=== PATIENT | male | born 1985 | race Caucasian/White ===

== ENCOUNTER 2016-05-25 20:52 | Emergency (ER) | payer OTHER ==
[2016-05-25] MEDS ORDERED: XYLOCAINE 1% INJ ONE (23:24)
[2016-05-25] MEDS ORDERED: NORCO-7.5 PO ONE (23:24)
[2016-05-25] MEDS ORDERED: SEPTRA DS PO ONE (23:25)
--- NOTE | 2016-05-25 23:28 | PROVIDER DOCUMENTATION ---
HPI-General Adult - General Chief Complaint: Abscess Stated Complaint: ingrown toe nail,abscess face Time Seen by Provider: 05/25/16 23:12 Source: patient Allergies/Adverse Reactions: Patient Allergies Allergy/AdvReac Type Severity Reaction Status Date / Time tramadol AdvReac Mild NAUSEA/VOMI Verified 05/26/16 00:13 TING Home Medications: Home Medication List Medication Instructions Recorded Confirmed Last Taken Type Trazodone [Desyrel] 150 mg PO QHS 07/07/15 05/26/16 05/18/16 21:00 History Hydrocodone/APAP 5 mg/325 mg 1 each PO Q6H PRN PRN #10 tablet 05/26/16 Unknown Rx [Sanford-5] Sulfamethoxazole/Trimethoprim 1 each PO BID #10 tablet 05/26/16 Unknown Rx [Bactrim Ds Tablet] - History of Present Illness -Gen Adult Nature of Presenting Problems: Pt. is 31 yom that presents with c/o ingrown toenail to the left great toe. Pt. reports symptoms for one month. Pt. also reports an abscess to the right side of his head. Pt. denies any other symptoms. Location of Pain/Injury: reports: feet (Left great toe). denies: head, face, mouth, neck, chest, upper extremity, hand(s), abdomen, back, pelvis, genitalia, lower extremity, upper body, lower body, generalized Pain Radiation: reports: no radiation Quality of Pain: reports: aching. denies: burning, cramping, dull, fullness, indigestion, pressure, sharp, stabbing, tearing, throbbing, tightness Severity: reports: moderate. denies: mild, severe Onset/Duration: reports: gradual, other (One month) Timing: reports: still present. denies: improving, gone now, resolved prior to arrival, intermittent, constant, changing over time, getting worse Context/Activities at Onset: reports: none. denies: recent emotional stress, recent physical stress, recent trauma history, possible bad food, cold exposure , out of country travel Modifying Factors: improves with: nothing Associated Symptoms: reports: other (Toe pain). denies: anxiety, arm pain, back /neck pain, chest pain, constipation, cough, diaphoresis, diarrhea, dizziness, EENT symptoms, fatigue, fever/chills, genitourinary problems, headaches, heartburn, joint pain, loss of appetite, malaise, muscle aches, sinus congestion /drainage, nausea, rash, seizure, shortness of breath, sensory/motor loss, pain with inspiration, swelling/mass in abdomen, syncope, vomiting, weakness, trouble walking Similar Symptoms Previously?: Yes Recently seen or treated by another doctor?: No Review of Systems - Adult - REVIEW OF SYSTEMS - ADULT Constitutional: reports: see HPI. denies: chills, fever, fatique Eyes: reports: see HPI. denies: discharge, blurred vision, double vision Ears, Nose, Mouth & Throat: reports: see HPI. denies: ear pain, hearing loss, sinus problem, nose pain, loose teeth, mouth/dental pain, throat pain, throat swelling Cardiovascular: reports: see HPI. denies: chest pain, edema, irregular heart rate, palpitations, syncope Respiratory: reports: see HPI. denies: cough, dyspnea on exertion, pleurisy, shortness of breath, wheezing Gastrointestinal: reports: see HPI. denies: abdominal pain, hematemesis, difficulty swallowing, nausea, vomiting Genitourinary: reports: see HPI. denies: dysuria, discharge, frequent UTI's, hematuria, hesitency, urgency Musculoskeletal: reports: see HPI. denies: bone pain, back pain, joint pain, muscle aches, neck pain Integumentary: reports: see HPI, skin sores/ulcer (Left great toe has an ingrown toenail that is erythemic and swollen with foul odor. There is exudate draining from the wound.). denies: hair loss, itching, rash Neurological: reports: see HPI. denies: ataxia, headache/migraines, numbness, seizure, tremors Psychiatric: reports: see HPI. denies: anxiety, depression, emotional problems , insomnia, panic attacks, suicidal thoughts Past History - Adult - PAST MEDICAL HISTORY-ADULT Review of Records: reports: Old Records Reviewed, Nursing Assessment Review, Medications Reviewed, Social history reviewed & non-contributory. Major Childhood Illnesses: reports: denies history Cardiovascular: reports: heart valve problem (bicuspid valve with h/o bacterial endocarditis) Respiratory: reports: denies history Gastrointestinal: reports: denies history Obstetrical/Gynecological: reports: denies history Genitourinary: reports: denies history Musculoskeletal: reports: denies history Neurological: reports: denies history Endocrine/Immune: reports: denies history Other Conditions: reports: denies history - PRIOR SURGERIES/PROCEDURES Surgical/Procedure History: reports: orthopedic (extremity) - PRIOR HOSPITALIZATIONS Prior Hospitalizations: reports: for similar symptoms - IMMUNIZATION STATUS Childhood Immunizations: See Nurse Assessment Flu Vaccine: See Nurse Assessment - FAMILY HISTORY Family History: diabetes (both parents) - SOCIAL HISTORY Smoking: non-smoker Physical Exam-General - PHYSICAL EXAM-ADULT Initial Vital Signs Reviewed: Yes - CONSTITUTIONAL General Appearance: alert, moderate distress, thin. negative: obese, anxious, lethargic, slow to respond, obtunded, combative - EYES Eyes: PERRL/EOMI, pink conjunctivae. negative: conjuctival exudate, scleral icterus, subconjunctival hemorrhage - HEAD, EARS, NOSE, MOUTH & THROAT HENMT: normocephalic/atraumatic, moist mucous membranes. negative: angioedema, frontal tenderness, maxillary tenderness - NECK Neck: non-tender, full range of motion, supple, normal inspection. negative: lymphadenopathy, trachial deviation, thyromegaly - RESPIRATORY Respiratory: lungs clear, normal breath sounds. negative: crackles, rales, rhonchi, stridor, wheezing - CARDIOVASCULAR Cardiovascular: normal peripheral pulses, regular rate, rhythm, no edema, no JVD , no murmur. negative: extra beats, friction rub, irregularly irregular - CHEST (BREASTS) Chest/Breast: deferred - GASTROINTESTINAL (ABDOMEN) Abdominal Exam: normal bowel sounds, non tender, soft. negative: distended, guarding, rigid, rebound, tenderness, hernia, mass - GENITOURINARY Male Genitalia: deferred Rectal Exam: deferred Hemoccult Exam: deferred - LYMPHATIC Lymphatic: no adenopathy. negative: axilla node tender, cervical node tenderness - MUSCULOSKELETAL Back Exam: normal inspection, no CVA tenderness, no vertebral tenderness. negative: ecchymosis, swelling, vertebral tenderness Extremity: normal range of motion, non-tender, normal gait, normal inspection, swelling (Left great toe has an ingrown toenail that is erythemic and swollen with foul odor. There is exudate draining from the wound.), tenderness (Left great toe has an ingrown toenail that is erythemic and swollen with foul odor. There is exudate draining from the wound.). negative: deformity, erythema, inflammation Peripheral Pulses: radial (R): 2+, radial (L): 2+ - SKIN Integumentary: normal color, normal turgor, warm/dry, erythema (Left great toe has an ingrown toenail that is erythemic and swollen with foul odor. There is exudate draining from the wound.), swelling (Left great toe has an ingrown toenail that is erythemic and swollen with foul odor. There is exudate draining from the wound.), tenderness (Left great toe has an ingrown toenail that is erythemic and swollen with foul odor. There is exudate draining from the wound.). negative: cyanosis, diaphoresis, ecchymosis, jaundice, mottled, pallor, petechiae, purpura, rash - NEUROLOGIC Neurologic: grossly normal, no motor/sensory deficits. negative: aphasia, facial droop, focal weakness, motor weakness, sensory deficit - PSYCHIATRIC Psych/Mental Status: normal mood/affect, normal thought content, normal thought process, oriented x 3. negative: anxious, paranoid, tearful Progress - PLAN OF CARE/RESULTS Progress/Plan/Lab Results: Discussed results and plan of care with patient. Patient agrees with plan and verbalizes understanding. Vital Signs Temp Pulse Resp BP Pulse Ox 05/25/16 20:57 97.6 F 65 18 128/81 97 tramadol Adverse Reaction (Mild, Verified 05/26/16 00:13) NAUSEA/VOMITING dizziness Trazodone [Desyrel] 150 mg PO QHS 07/07/15 Orders Category Date Time Status I and D Set up DIRECTED Care 05/25/16 23:24 Active Wound Care DIRECTED Care 05/26/16 00:22 Active Hydrocodone/APAP 7.5 mg/325 mg [Sanford-7.5] Med 05/25/16 23:24 Discontinued 1 each PO NOW ONE Lidocaine 1% [Xylocaine 1%] Med 05/25/16 23:24 Discontinued 20 ml INJ NOW ONE Sulfamethoxazole/Tmp D.s. [Septra Ds] Med 05/25/16 23:25 Discontinued 1 each PO NOW ONE Procedures - NAIL TREPHINATION Prepped with: Garret Nail Removed: Yes Sterile Dressing Applied: Yes Procedure Comment: Lateral part of the great toenail removed - ADDITIONAL PROCEDURES Additional Procedure: Digital Nerve Block (15 ml lidocaine to the left great toe ) Departure - Departure Time of Disposition Order: 00:28 DIAGNOSIS: Ingrown left greater toenail Disposition: HOME 01 Certified Medical Emergency: Emergent Condition: Stable Additional Instructions: Follow up with primary care physician Take medications as directed Return to ED for any concerns or worsening of symptoms ED Follow Up Instructions: You have been treated by a care provider in the Emergency Department. These instructions are being provided to you so you can have an understanding of how to care for yourself upon discharge. Upon discharge from the Emergency Department, you are responsible for making arrangements for follow-up care by a physician of your choice. Take all prescribed medications as directed. Return to the Emergency Department immediately for any new or worsening symptoms. You may call the Physician Referral phone number at [phone] to obtain a list of Physicians who are taking new patients. Prescriptions: Sulfamethoxazole/Trimethoprim [Bactrim Ds Tablet] 1 each PO BID #10 tablet Hydrocodone/APAP 5 mg/325 mg [Sanford-5] 1 each PO Q6H PRN PRN #10 tablet PRN Reason: Pain Attestation - Physician/ JA Attestation Patient care was provided by Advanced Practice Provider:: Yes Advanced Practice Provider:: Nataliya Longoria Advanced Practice Provider documentation review:: The Mid-level provider documentation, treatment plan and medical decision making was reviewed by the physician who agrees with all treatment and medical decision making by the MLP.
[2016-05-26 01:17] VITALS: BP 109/69
== END 2016-05-26 01:16 | disposition home or self-care (01) ==
LOC: ED 20:52
DX: L60.0 Ingrowing nail (principal); M79.675 Pain in left toe(s); L53.9 Erythematous condition, unspecified; R22.42 Localized swelling, mass and lump, left lower limb